=== PATIENT | female | born 1950 | race Caucasian/White ===

== ENCOUNTER 2018-03-09 09:49 | Day surgery (SDC) | payer MEDICARE ==
[2018-03-09] MEDS ORDERED: LIDOCAINE 2% MDV (20MG/ML) 20ML VIAL IV ONE (09:50)
[2018-03-09] MEDS ORDERED: MIDAZOLAM HCL 2MG/2ML VIAL IV ONE (09:50)
[2018-03-09] MEDS ORDERED: PROPOFOL 10 MG/ML VIAL IV ONE (09:50)
--- NOTE | 2018-03-10 12:50 | Operative Note ---
DATE OF SURGERY: 03/09/2018 OPERATION: COLONOSCOPY. PREOPERATIVE DIAGNOSIS: Personal history of colon polyps. POSTOPERATIVE DIAGNOSIS: Sigmoid diverticulosis. PREPARATION QUALITY: Good to excellent. ESTIMATED BLOOD LOSS: None. COMPLICATIONS: None apparent. SPECIMENS: None. PROCEDURE: After informed consent was obtained from the patient, she was placed in the left lateral decubitus position in the endoscopy suite, sedated and monitored by the department of anesthesia. Digital rectal examination was unremarkable. A well-lubricated [id number] colonoscope was inserted into the rectum and advanced to the cecum. Preparation quality was good to excellent. The cecum, ileocecal valve, appendiceal orifice, ascending colon, transverse colon, and descending colon were unremarkable. No polyps, mass lesions, or inflammation was seen. The sigmoid colon demonstrated moderate diverticular changes. No inflammation or polyps were seen. The rectum was unremarkable in forward and in J-turn views. The endoscope was straightened, the rectal ampulla deflated, and the endoscope was removed. RECOMMENDATIONS: I would suggest the patient follow a high-fiber diet and use a fiber supplement such as Benefiber. Given her history of polyps, I would recommend a repeat exam in 5 years. As always, thank you for allowing me to participate in the healthcare of your patients. CC: Narayan Tucker MD [facility]
== END 2018-03-09 11:52 | disposition home or self-care (01) ==
LOC: HOP 09:49
PROVIDERS: ATTEND Internal Medicine Gastroenterology
DX: Z12.11 Encounter for screening for malignant neoplasm of colon (principal); Z86.010 Personal history of colon polyps; K57.30 Diverticulosis of large intestine without perforation or abscess without bleeding; E78.00 Pure hypercholesterolemia, unspecified